=== PATIENT | female | born 1960 | race Caucasian/White ===

== ENCOUNTER 2016-12-26 16:48 | Emergency (ER) | payer OTHER ==
[~2016-12-26] VITALS: Ht 149.9 cm; Wt 56.7 kg
[~2016-12-26 16:48] MED LIST: ASPIRIN81 M1 PO; AUGMENTIN 875 M1 TAB PO; LIORESAL10 MG PO; ZOCOR20 MG PO
[2016-12-26 16:57] VITALS: BP 122/75
--- NOTE | 2016-12-26 17:03 | NUR ---
Patient ambulated to bed 5. RN evaluating patient at bedside.
--- NOTE | 2016-12-26 17:05 | NUR ---
PT PRESENTS TO ER W/C/O LOW BLOOD SUGAR. PT STATES HER BLOOD SUGAR IMMEDIATELY PRIOR TO ARRIVAL 24. BLOOD SUGAR UPON ARRIVAL TO ER 126. HX DM, HYPERLIPIDEMIA. DENIES N/V/D; SKIN IS PINK/WARM/DRY; AAOX4 WITH EVEN AND STEADY GAIT; LUNGS CLEAR BL; HR EVEN AND REGULAR; PT DENIES ANY FEVER, CP, SOB, OR COUGH AT THIS TIME; PATIENT STATES PAIN OF 0/10 AT THIS TIME; VSS; PATIENT POSITIONED FOR COMFORT; HOB ELEVATED; BEDRAILS UP X2; BED DOWN. ER MD MADE AWARE OF PT STATUS.
--- NOTE | 2016-12-26 17:23 | NUR ---
DR CARRILLO ASSESSING THE PT AT BEDSIDE
[2016-12-26 17:45] VITALS: BP 118/75
--- NOTE | 2016-12-26 17:45 | NUR ---
Patient discharged with v/s stable. Written and verbal after care instructions given and explained. Patient alert, oriented and verbalized understanding of instructions. Ambulatory with steady gait. All questions addressed prior to discharge. ID band removed. Patient advised to follow up with PMD. Rx of OMEPRAZOLE, CONTOUR BLOOD GLUCOSE MONITOR SYSTEM given. Patient educated on indication of medication including possible reaction and side effects. Opportunity to ask questions provided and answered.
== END 2016-12-26 17:45 | disposition home or self-care (01) ==
LOC: MED 16:48
DX: E11.649 Type 2 diabetes mellitus with hypoglycemia without coma (principal); R10.13 Epigastric pain; K21.9 Gastro-esophageal reflux disease without esophagitis; E78.5 Hyperlipidemia, unspecified; R03.0 Elevated blood-pressure reading, without diagnosis of hypertension; Z79.82 Long term (current) use of aspirin

== ENCOUNTER 2017-10-06 21:59 | Emergency (ER) | payer OTHER ==
[~2017-10-06] VITALS: Ht 152.4 cm; Wt 54.4 kg
[~2017-10-06 21:59] MED LIST changes: +AMOX-842 PO; +ASPI81CT89 PO; -ASPIRIN81 M1 PO; -AUGMENTIN 875 M1 TAB PO; +BACL10TA4 PO; -LIORESAL10 MG PO; +SIMV20TA1 PO; -ZOCOR20 MG PO
[2017-10-06 22:07] VITALS: BP 147/88
--- NOTE | 2017-10-06 22:19 | NUR ---
AMBULATED TO ER BED 10
--- NOTE | 2017-10-06 22:20 | NUR ---
PATIENT IS A 57 Y/O FEMALE WHO PRESENTS TO THE ED C/O HIGH BLOOD PRESSURE AND IRREGULAR HEARTBEAT. PT STATES, "MY BP WAS HIGH BEFORE I CAME IN AND MY HEART IS SKIPPING." PT DENIES PAIN AT THIS TIME, CP, SOB, N/V/D. BP AT THIS TIME 125/60 HR 62. LUNG SOUNDS CLEAR BL. PT AAOX4, RR EVEN/UNLABORED, RR EVEN/UNLABORED. PT REPOSITIONED FOR COMFORT, BED IN LOWEST POSITION. ER MD DR. CARRILLO NOTIFIED. WILL CONTINUE TO MONITOR.
[2017-10-06 23:25] LABS: HEMATOCRIT 37.7 % (36-48); HEMOGLOBIN 12.6 g/dL (12.0-16.0); MEAN CORPUSCULAR HEMOGLOBIN 29 pg (27-31); MEAN CORPUSCULAR HGB CONC 34 g/dL (33-37); MEAN CORPUSCULAR VOLUME 87 fL (80-94); PLATELET COUNT (AUTO) 196 K/uL (140-450); RED BLOOD CELL COUNT(AUTO) 4.36 MIL/uL (4.20-5.40); RED CELL DISTRIBUTION WIDTH 12.6 % (11.6-13.7); WHITE BLOOD COUNT (AUTO) 6.7 K/uL (4.8-10.8)
[2017-10-06 23:44] LABS: ANION GAP 11.5 (8-16); CARBON DIOXIDE 29.3 mmol/L (21-32); CREATININE 0.9 mg/dL (0.6-1.3); POTASSIUM 3.8 mmol/L (3.5-5.1)
[2017-10-06 23:49] LABS: ALBUMIN 3.9 g/dL (3.4-5.0); TOTAL BILIRUBIN 0.3 mg/dL (0.0-1.0)
[2017-10-07 01:05] VITALS: BP 108/45
== END 2017-10-07 01:05 | disposition home or self-care (01) ==
LOC: MED 21:59
DX: R07.9 Chest pain, unspecified (principal); K21.9 Gastro-esophageal reflux disease without esophagitis; E11.9 Type 2 diabetes mellitus without complications
CPT/HCPCS: 36415; 71045; 80053; 83880; 84484; 85025; 93005; 99285

== ENCOUNTER 2017-11-11 08:30 | Emergency (ER) | payer OTHER ==
[~2017-11-11] VITALS: Ht 147.3 cm; Wt 51.3 kg
[2017-11-11 08:38] VITALS: BP 137/82
--- NOTE | 2017-11-11 08:55 | NUR ---
57/F BIB SELF c/o dull intermittent epigastric pain RADIATES TO RIGHT SIDE ABDOMEN x 1 wk. hx---hyperlipidemia. DENIES N/V/D; SKIN IS PINK/WARM/DRY; AAOX4 WITH EVEN AND STEADY GAIT; LUNGS CLEAR BL;PT DENIES ANY FEVER, CP, SOB, OR COUGH AT THIS TIME; PATIENT STATES PAIN OF 8/10 AT THIS TIME. PATIENT POSITIONED FOR COMFORT; HOB ELEVATED; BEDRAILS UP X2; BED DOWN. ER MD MADE AWARE OF PT STATUS.
--- NOTE | 2017-11-11 09:12 | NUR ---
lab by bedside
[2017-11-11 09:17] LABS: APPEARANCE,URINE CLEAR (CLEAR); BILIRUBIN,URINE NEGATIVE (NEGATIVE); BLOOD, URINE TRACE-L (NEGATIVE); COLOR,URINE YELLOW (YELLOW); LEUKOCYTE ESTERASE ,URINE 2+ (NEGATIVE); NITRITE, URINE NEGATIVE (NEGATIVE); UGLUCOSE NEGATIVE (NEGATIVE)
[2017-11-11 09:18] LABS: BASOPHILS # (AUTO) 0.2 K/uL (0.00-0.22); BASOPHILS % (AUTO) 3.4 % (0.0-2.0); EOSINOPHILS # (AUTO) 0.1 K/uL (0-0.4); EOSINOPHILS % (AUTO) 1.2 % (0.0-4.0); HEMATOCRIT 41.1 % (36-48); HEMOGLOBIN 13.7 g/dL (12.0-16.0); LYMPHOCYTES # (AUTO) 1.3 K/uL (2.5-16.5); LYMPHOCYTES % (AUTO) 23.9 % (20.5-51.1); MEAN CORPUSCULAR HEMOGLOBIN 30 pg (27-31); MEAN CORPUSCULAR HGB CONC 33 g/dL (33-37); MEAN CORPUSCULAR VOLUME 88 fL (80-94); MONOCYTES # (AUTO) 0.5 K/uL (0.8-1.0); NEUTROPHILS # (AUTO) 3.4 K/uL (1.8-7.7); NEUTROPHILS % (AUTO) 62.5 % (42.2-75.2); PLATELET COUNT (AUTO) 195 K/uL (140-450); RED BLOOD CELL COUNT(AUTO) 4.65 MIL/uL (4.20-5.40); RED CELL DISTRIBUTION WIDTH 13.4 % (11.6-13.7); WHITE BLOOD COUNT (AUTO) 5.5 K/uL (4.8-10.8)
[2017-11-11 09:30] LABS: ALBUMIN 3.7 g/dL (3.4-5.0); CARBON DIOXIDE 29.7 mmol/L (21-32); CREATININE 0.9 mg/dL (0.6-1.3); POTASSIUM 3.7 mmol/L (3.5-5.1); TOTAL BILIRUBIN 0.3 mg/dL (0.0-1.0)
[2017-11-11 09:38] LABS: RBC,URINE 3-10 (FEW) /HPF (0-5)
[2017-11-11] MEDS ORDERED: LIDOCAINE VISCOUS 2% 20 ML UDC PO ONE (09:40)
[2017-11-11] MEDS ORDERED: ALUMINUM HYD/MAG/SIMETHICONE 30 ML UDC PO ONE (09:40)
[2017-11-11] MEDS ORDERED: DICYCLOMINE HCL LIQUID 10 MG/5 ML UDC PO ONE (09:40)
--- NOTE | 2017-11-11 10:44 | NUR ---
Patient appears to be resting comfortably in bed. Vital Signs within normal limits. Respirations even and unlabored.will continue to monitor.
[2017-11-11 11:00] VITALS: BP 130/60
--- NOTE | 2017-11-11 11:22 | NUR ---
Patient discharged with BP 130/60, DENIES HEADACHE;MD MADE AWARE. Written and verbal after care instructions given and explained. Patient alert, oriented and verbalized understanding of instructions. Ambulatory with steady gait. All questions addressed prior to discharge. ID band removed. Patient advised to follow up with PMD. Rx of MACROBID given. Patient educated on indication of medication including possible reaction and side effects. Opportunity to ask questions provided and answered.
== END 2017-11-11 11:22 | disposition home or self-care (01) ==
LOC: MED 08:30
DX: N39.0 Urinary tract infection, site not specified (principal); K29.70 Gastritis, unspecified, without bleeding; E11.9 Type 2 diabetes mellitus without complications; K21.9 Gastro-esophageal reflux disease without esophagitis; Z79.899 Other long term (current) drug therapy; Z88.8 Allergy status to other drugs, medicaments and biological substances
CPT/HCPCS: 36415; 80053; 81001; 82150; 83690; 84484; 84703; 85025; 87086; 99285

== ENCOUNTER 2018-03-21 08:12 | Emergency (ER) | payer OTHER ==
[~2018-03-21] VITALS: Ht 152.4 cm; Wt 49.9 kg
--- NOTE | 2018-03-21 08:14 | NUR ---
PT AMBULATED TO BED 11
[2018-03-21 08:15] VITALS: BP 131/70
--- NOTE | 2018-03-21 08:22 | NUR ---
57YO F TO ER FOR C/O ONGOING DIZZINESS MORESO WITH SUDDEN MOVEMENTS X 2 WKS --LEFT TEMPORAL HEADACHE, PAIN 01/04--- ALSO ADDS LEFT SCAPULA ACHE RADIATING TOWARS FRONT OF CHEST X 1 WK NAUSEA, LIGHT TREMORS--DENIES RECENT INJURY/TRAUMA, NO FACIAL ASYMMETRY , FULL CLEAR SPEECH, MOVING ALL EXTREMITIES EQUALLY, ALERT AND ORIENTENTED X4, PERRLA, BS ACTIVE X4, LS CLEAR THROUGHOUT SINUS JACKELYN ON BEDSIDE MONITOR, HR48. PT DENIES ANY SOB, FEVER, COUGH, V/D, AND ABD PAIN. DR GAMEZ MADE AWEARE. WILL CONTINUE TO MONITOR. HOB ELEVATE, MONITORS ATTACHED, BED IN LOWEST POSITION. ---SEEN BY HER PMD 2 WKS AGO---DX VERTIGO HX---HYPERLIPIDEMIA, BRADYCARDIA RX----[facility]
--- NOTE | 2018-03-21 08:35 | NUR ---
Patient being evaluated by physician at bedside.
[2018-03-21] MEDS ORDERED: MECLIZINE 25 MG TAB PO ONE (08:50)
--- NOTE | 2018-03-21 09:00 | NUR ---
LAB AT BED SIDE
--- NOTE | 2018-03-21 09:02 | NUR ---
EMT AT BED SIDE FOR EKG
--- NOTE | 2018-03-21 09:06 | NUR ---
XRAY AT BEDSIDE
--- NOTE | 2018-03-21 09:10 | NUR ---
PT TO CT WITH [employer] VIA GURNEY IN NO APPEARENT DISTRESS. RR EVEN AND UNLABORED
--- NOTE | 2018-03-21 09:17 | NUR ---
PT BACK FROM CT. MONITORS ATTACHED. VSS
[2018-03-21 09:19] LABS: BASOPHILS % (AUTO) 0.8 % (0.0-2.0); EOSINOPHILS # (AUTO) 0.1 K/uL (0-0.4); EOSINOPHILS % (AUTO) 2.7 % (0.0-4.0); HEMATOCRIT 36.8 % (36-48); HEMOGLOBIN 12.6 g/dL (12.0-16.0); LYMPHOCYTES # (AUTO) 1.8 K/uL (2.5-16.5); LYMPHOCYTES % (AUTO) 35.3 % (20.5-51.1); MEAN CORPUSCULAR HEMOGLOBIN 30 pg (27-31); MEAN CORPUSCULAR HGB CONC 34 g/dL (33-37); MEAN CORPUSCULAR VOLUME 86.2 fL (80-94); MONOCYTES # (AUTO) 0.4 K/uL (0.8-1.0); MONOCYTES % (AUTO) 7.2 % (1.7-9.3); NEUTROPHILS # (AUTO) 2.7 K/uL (1.8-7.7); PLATELET COUNT (AUTO) 184 K/uL (140-450); RED BLOOD CELL COUNT(AUTO) 4.27 MIL/uL (4.20-5.40); RED CELL DISTRIBUTION WIDTH 13.1 % (11.6-13.7)
[2018-03-21 09:33] LABS: ANION GAP 10.4 (8-16); CARBON DIOXIDE 29.8 mmol/L (21-32); CREATININE 0.9 mg/dL (0.6-1.3); POTASSIUM 4.2 mmol/L (3.5-5.1)
[2018-03-21 09:37] LABS: PROTHROMBIN TIME 10.9 secs (10.8-13.4)
[2018-03-21 09:39] LABS: ALBUMIN 3.6 g/dL (3.4-5.0); TOTAL BILIRUBIN 0.3 mg/dL (0.0-1.0)
--- NOTE | 2018-03-21 09:40 | NUR ---
PT DENIES ANY DIZZINESS AIT THIS TIME. ER MADE AWARE.
[2018-03-21 10:52] VITALS: BP 123/67
== END 2018-03-21 10:52 | disposition home or self-care (01) ==
LOC: MED 08:12
DX: H83.09 Labyrinthitis, unspecified ear (principal); E11.9 Type 2 diabetes mellitus without complications; K21.9 Gastro-esophageal reflux disease without esophagitis
CPT/HCPCS: 36415; 70450; 71045; 80053; 83880; 84484; 85025; 85610; 85730; 86886; 86900; 86901; 93005; 99285; J8597; Q0092